=== PATIENT | female | born 1970 | race Caucasian/White ===

== ENCOUNTER 2020-08-23 12:36 | Emergency (ER) | payer OTHER, SELFPAY ==
[2020-08-23 12:47] VITALS: BP 141/87; PULSE 91; RESP 16; TEMP 37.1; O2SAT 94; BMI 35.4
--- NOTE | 2020-08-23 13:34 | XR_ITS ---
WS: [id number] RIGHT HIP HISTORY: INJURY COMPARISON: None available. Right hip: No acute fracture or dislocation. No displacement. Mild acetabular osteophytic ridging. Vi sualized pubic rami intact. Increased soft tissue thickening overlying the lateral proximal femur. XR/XR hip RT 2-3V wo/w pel* [id number] IMPRESSION: 1. No acute fracture. 2. Soft tissue changes consistent with hematoma or edema lateral to the proxim al femur.
--- NOTE | 2020-08-23 14:48 | ED_ITS ---
HPI - Extremity Problem General: Chief complaint: Extremity Injury, Lower Stated complaint: RIGHT LEG AND R HIP PAIN POST 5 DAYS Time Seen by Provider: 08/23/20 13:41 Source: patient Mode of arrival: ambulatory Limitations: no limitations History of Present Illness: HPI Narrative: 50-year-old female patient presents to the emergency department with 4-day onset of right hip pain. She reports her dog came up behind her and hit her in the back of the right upper leg causing her to almost fall. She reports pain in the right hip since the episode. Pain is worse with lateral movement. She states is able to walk without difficulty. She denies further injuries or pain upon exam MD Complaint: extremity pain Onset (ago): day(s) (4) Pain Consistency: intermittent Location: right and lower extremity Severity scale (1-10): 4 Radiation: none Exacerbating factors: other (Lateral movement) Associated symptoms: Reports no associated symptoms; Deny chest pain, fever(s) or rash Review of Systems General: Reports: 10 or more systems reviewed and unremarkable except in HPI and below Const: Denies: fever(s), chills or diaphoresis Eyes: Denies: blurry vision or eye redness ENMT: Denies: throat pain, dental pain or disequilibrium Card: Denies: chest pain, palpitations or irregular heart rhythm Resp: Denies: dyspnea, productive cough, non-productive cough or wheezing GI: Denies: abdominal pain, nausea or vomiting : Denies: difficulty voiding or dysuria Musc: Reports: extremity pain (Right hip); Denies: neck pain or back pain Skin/Breast: Denies: rash or pruritus Neuro: Denies: headache(s), weakness in extremities or behavioral changes Psych: Denies: anxiety or depression Donny/Lymph: Denies: easy bruising Physical Exam Const: COMMON NORMALS: no acute distress, patient oriented x3, healthy appearing and alert GENERAL APPEARANCE: cooperative, comfortable and well hydrated HENMT: COMMON NORMALS: normocephalic, Normal external nose present and moist oral mucous membranes HEAD & SCALP: normocephalic NOSE: Normal external nose present Eye: COMMON NORMALS: Equal, round and reactive pupils present GENERAL EYE: appearance normal, both eyes and all related structures PUPIL: Yes Equal, round and reactive pupils present Neck/C-Spine: COMMON NORMALS: full ROM and no lymphadenopathy GENERAL: Yes normal visual inspection and Yes trachea midline CERVICAL SPINE: Yes cervical ROM normal Lymph: LYMPHATIC: no lymphadenopathy noted Chest: COMMONS NORMALS: normal inspection of the chest Resp: COMMON NORMALS: normal respiratory effort, No retractions, No use of accessory muscles and clear to auscultation bilaterally EFFORT & INSPECTION: Yes able to speak in complete sentences AUSCULTATION: clear to auscultation bilaterally Cardio: COMMON NORMALS: regular rhythm, S1 normal heart sound present, S2 normal heart sound present and Peripheral pulses 2+ throughout RHYTHM: regular rhythm HEART SOUNDS: S1 normal heart sound present and S2 normal heart sound present PERIPHERAL PULSES: Peripheral pulses 2+ throughout GI: COMMON NORMALS: Normal to inspection, nondistended, normoactive bowel sounds present, Soft to palpation and non-tender INSPECTION: Yes normal to inspection PALPATION: Yes Soft to palpation : COMMON NORMALS: Yes no CVA tenderness BLADDER/KIDNEY EXAM: Yes no CVA tenderness Back/Pelvis: COMMON NORMALS: no CVA tenderness and thoracic and lumbar spine normal to inspection Extremity: COMMON NORMALS: normal to inspection, full ROM and capillary refill normal RIGHT LOWER EXTREMITY: Yes hip joint Right hip: Yes inspection (Normal), Yes palpation (Soft tissue tenderness right anterior), Yes ROM (Full range of motion noted, able to reproduce pain with right hip adduction) and Yes neurovascular exam (Distally intact) Neuro: COMMON NORMALS: patient oriented x3 and no focal motor deficits SENSORIUM/ORIENTATION: Yes alert SPEECH: speech normal GAIT: Yes Normal gait present Psych: COMMON NORMALS: mental status grossly normal, Normal thought process present and cooperative ACTIVITY/MOTOR BEHAVIOR: Yes appropriate eye contact THOUGHT PROCESS: Normal thought process present Skin: COMMON NORMALS: no rashes or lesions noted and turgor normal GENERAL SKIN EXAM: no rashes or lesions noted and turgor normal Course Vital Signs: Vital signs: Vital Signs Temperature 98.8 F 08/23/20 12:47 Pulse Rate 79 08/23/20 15:11 Respiratory Rate 14 08/23/20 15:11 Blood Pressure 138/86 08/23/20 15:11 Pulse Oximetry 96 08/23/20 15:11 MDM - Extremity (Nontraumatic) Imaging Data^: Xray Ortho: Radiologist's impression: [address] [address] XRay Report Signed Patient: Terra Upton #: [id number] : 1970Acct#:[id number] Age/Sex: 50 / FADM Date: 08/23/20 Loc: ERRoom/Bed: Attending Dr: Ordering Provider/Ordering MD: Fabrice Martinez DO Date of Service: 08/23/20 Procedure(s): XR hip RT 2-3V wo/w pel* [id number] Accession Number(s): [id number] Report Number: [id number] WS: [id number] RIGHT HIP HISTORY: INJURY COMPARISON: None available. Right hip: No acute fracture or dislocation. No displacement. Mild acetabular osteophytic ridging. Visualized pubic rami intact. Increased soft tissue thickening overlying the lateral proximal femur. XR/XR hip RT 2-3V wo/w pel* [id number] IMPRESSION: 1. No acute fracture. 2. Soft tissue changes consistent with hematoma or edema lateral to the proximal femur. Dictated By:Marleni Wise DO Signed By:Marleni Wise DOSigned Date/Time:08/23/20 1346 DD/ 1345 Discharge Plan Discharge Patient Disposition: Home Clinical Impression: Strain of muscle of right hip Qualifiers: Encounter type: initial encounter Qualified Code(s): S76.011A - Strain of muscle, fascia and tendon of right hip, initial encounter Groin strain Qualifiers: Encounter type: initial encounter Laterality: right Qualified Code(s): S76.211A - Strain of adductor muscle, fascia and tendon of right thigh, initial encounter Condition: Stable Prescriptions: New IBU 800 mg tablet 800 mg PO TID PRN (Reason: pain) Qty: 30 RF: 0 Discharge Orders: Discharge ED (Routine); Ordered 08/23/20 Ordered By: Ena Alexander Referrals: Feliberto Conner MD [Primary Care Provider] - Discharge Diet: Usual diet Discharge Activity: Resume usual activity Patient Instructions: Muscle Strain (ED), Groin Strain (ED) Activity Restrictions/Additional Instructions: Apply warm moist heat several times daily to help with pain Take ibuprofen as prescribed as needed for pain, do not take [id number] medication such as Aleve, ibuprofen or Advil as duplication of therapy can occur, may take Tylenol as needed for pain if supplement as needed Follow-up with your primary care provider if you continue to have pain in the next 7 days. Coding Level of Care Code ED Package Delivery Room Service Runner for [place] Fwd Exam Comprehensive
[2020-08-23 15:11] VITALS: BP 138/86; PULSE 79; RESP 14; O2SAT 96
== END 2020-08-23 15:12 | disposition home or self-care (01) ==
PROVIDERS: Emergency Provider Nurse Practitioner Family; PCP Family Medicine
DX: S76.011A Strain of muscle, fascia and tendon of right hip, initial encounter (principal); S76.211A Strain of adductor muscle, fascia and tendon of right thigh, initial encounter; W54.1XXA Struck by dog, initial encounter
CPT/HCPCS: 12345; 73502; 99281; 99282

== ENCOUNTER 2020-11-22 09:04 | Outpatient (CLI) | payer OTHER, SELFPAY ==
--- NOTE | 2020-11-22 09:09 | MM_ITS ---
WS: [id number] BILATERAL DIGITAL SCREENING MAMMOGRAPHY WITH CAD CLINICAL INFORMATION: SCREENING HISTORY: Screening mammogram. No current complaints. COMPARISON: TECHNIQUE: Bilateral CC and MLO views. FINDINGS: Scattered fibroglandular densities bilaterally. No suspicious focal mass, asymmetry, calcifications, or architectural distortion. No evidence of malignancy. Incidental axillary tail lymph node left dolly st unchanged. MM/[place] [id number] IMPRESSION: BI-RADS: 2-Benign FOLLOW UP: 1 Year Follow-up Recommend return to annual screening mammography.
== END 2020-11-22 09:05 | disposition home or self-care (01) ==
LOC: RADSHAW 09:08
PROVIDERS: PCP Family Medicine; Visit Provider Family Medicine
DX: Z12.31 Encounter for screening mammogram for malignant neoplasm of breast (principal)
CPT/HCPCS: 77067

== ENCOUNTER → 2021-01-10 10:19 | Outpatient (BNVA) | payer OTHER, SELFPAY | PROVIDERS: PCP Family Medicine; Referring Provider Family Medicine; Visit Provider Podiatrist Foot & Ankle Surgery | DX: M79.672 Pain in left foot (principal); M20.12 Hallux valgus (acquired), left foot; M21.612 Bunion of left foot | CPT/HCPCS: 73630 ==

== ENCOUNTER → 2024-01-11 08:21 | Outpatient (BNVA) | payer OTHER, SELFPAY | PROVIDERS: PCP Family Medicine; Visit Provider Family Medicine | DX: C44.91 Basal cell carcinoma of skin, unspecified (principal); R31.9 Hematuria, unspecified; H73.90 Unspecified disorder of tympanic membrane, unspecified ear; Z51.81 Encounter for therapeutic drug level monitoring; Z13.220 Encounter for screening for lipoid disorders; R30.0 Dysuria | CPT/HCPCS: 80053; 80061; 81000; 85025; 87086 ==

== ENCOUNTER 2024-01-30 11:19 | Outpatient (CLI) | payer OTHER, SELFPAY ==
--- NOTE | 2024-01-30 11:26 | MM_ITS ---
WS: [id number] BILATERAL 3D TOMOSYNTHESIS DIGITAL SCREENING MAMMOGRAPHY WITH CAD CLINICAL INFORMATION: SCREENING HISTORY: Screening mammogram. No current complaints. COMPARISON: 2020 TECHNIQUE: Bilateral CC and MLO views. FINDINGS: Scattered fibroglandular densities bilaterally. No suspicious focal mass, asymmetry, calcifications, or architectural distortion. No evidence of malignancy. MM/[place] [id number] IMPRESSION: BI-RADS: 1-Negative FOLLOW UP: 1 Year Follow-up Recommend return to annual screening mammography.
--- NOTE | 2024-01-30 12:15 | US_ITS ---
WS: [id number] RENAL ULTRASOUND URINARY BLADDER ULTRASOUND HISTORY: Persistent hematuria COMPARISON: 03/07/2017 TECHNIQUE: 2-D and color Doppler imaging of the kidney submitted. Right kidney: 9.2 cm x 4.7 cm x 5.0 cm. Normal echogenicity with no hydronephrosis or mass. Left kidney: 9.7 cm x 6.1 cm x 5.8 cm. Normal echogenicity with no hydronephrosis or mass. Aorta: Normal. Urinary Bladder: Normal distention. Prevoid volume is 40 mL. Bladder was not distended for this exam. No post void residual. US/US renal BI with PV bladder IMPRESSION: 1. No renal obstruction or mass identified. No calcifications. 2. No significant post void residual in the urinary bladder.
== END 2024-01-30 11:20 | disposition home or self-care (01) ==
LOC: RAD 11:19
PROVIDERS: PCP Family Medicine; Visit Provider Family Medicine
DX: Z12.31 Encounter for screening mammogram for malignant neoplasm of breast (principal); R31.9 Hematuria, unspecified; R92.323 Mammographic fibroglandular density, bilateral breasts
CPT/HCPCS: 76770; 76857; 77063; 77067

== ENCOUNTER 2024-05-27 08:57 | Outpatient (RCR) | payer OTHER, SELFPAY | END 2024-06-26 23:59 | disposition home or self-care (01) | LOC: SPT 08:57 | PROVIDERS: Visit Provider Family Medicine | DX: M25.551 Pain in right hip (principal) | CPT/HCPCS: 97110; 97161 ==

== ENCOUNTER 2024-05-27 09:40 | Outpatient (CLI) | payer OTHER, SELFPAY ==
--- NOTE | 2024-05-27 09:45 | XR_ITS ---
WS: [id number] Exam: XR hip RT 2-3V wo/w pel* [id number] Date/Time of Exam: 05/27/2024 9:49 AM Reason For Exam: Right hip pain Comparison 08/23/2020. Mild to moderate degenerative change of the joint compartment with narrowing. No fracture. Osteophyte formation along the superior lateral acetabulum. Normal soft tissues. XR/XR hip RT 2-3V wo/w pel* [id number] IMPRESSION: 1. Mild to moderate DJD. No fracture.
== END 2024-05-27 09:41 | disposition home or self-care (01) ==
LOC: RAD 09:42
PROVIDERS: PCP Family Medicine; Visit Provider Family Medicine
DX: M16.11 Unilateral primary osteoarthritis, right hip (principal); M25.752 Osteophyte, left hip
CPT/HCPCS: 73502

== ENCOUNTER 2024-06-27 06:00 | Outpatient (RCR) | payer OTHER, SELFPAY | END 2024-07-26 23:59 | disposition home or self-care (01) | LOC: SPT 06:00 | PROVIDERS: PCP Family Medicine; Visit Provider Family Medicine | DX: M25.551 Pain in right hip (principal) | CPT/HCPCS: 97110 ==

== ENCOUNTER 2024-06-27 13:13 | Outpatient (CLI) | payer OTHER, SELFPAY ==
--- NOTE | 2024-06-27 13:17 | CT_ITS ---
WS: [id number] CT ABDOMEN AND PELVIS WITH AND WITHOUT CONTRAST HISTORY: HEMATURIA TECHNIQUE: Unenhanced 5 mm axial imaging first performed through the abdomen. Post contrast imaging t hrough the abdomen and pelvis. Oral contrast has been provided. Sagittal and coronal reformats are s ubmitted. All CT scans at [place] use at least one of these dose optimization techniques: automated exposure control; mA and/or kV adjustment per patient size (includes targeted exams where d ose is matched to clinical indication); or iterative reconstruction. CONTRAST: Omnipaque 350; 95 mL IV. DLP: 1065.33 mGy.cm COMPARISON: None available. Lung bases are clear. Normal size heart. Small hiatal hernia. Liver and spleen are normal size. Scattered hepatic cysts. Normal portal vein. Gallbladder is slightl y contracted. Normal pancreas. Normal adrenal glands. Normal aorta and mesenteric arteries. Kidneys are normal size. No calcification, obstruction or mass. No ureteral calcification. Stomach is mildly distended with food products. No small bowel obstruction. Diffuse moderate constipa tion. No appendicitis. No diverticulosis. No ascites or adenopathy. Prior hysterectomy. No osteoblastic or osteolytic bone disease. CT/CT abdomen pelvis wo/w [id number] IMPRESSION: 1. No renal or ureteral calcifications or obstruction. 2. Normal appendix. 3. No renal mass. 4. Moderate diffuse constipation. 5. No ascites or adenopathy.
[2024-06-27] MEDS: iohexol 350 mg/mL 500 mL Btl (per mL) IV (14:14)
== END 2024-06-27 13:14 | disposition home or self-care (01) ==
LOC: RAD 13:14
PROVIDERS: PCP Family Medicine; Visit Provider Urology
DX: R31.29 Other microscopic hematuria (principal); K59.00 Constipation, unspecified
CPT/HCPCS: 74178

== ENCOUNTER 2024-07-27 06:00 | Outpatient (RCR) | payer OTHER, SELFPAY | END 2024-08-26 23:59 | disposition home or self-care (01) | LOC: SPT 06:00 | PROVIDERS: PCP Family Medicine; Visit Provider Family Medicine | DX: M25.551 Pain in right hip (principal) | CPT/HCPCS: 97110 ==

== ENCOUNTER 2025-05-29 11:43 | Outpatient (CLI) | payer OTHER, SELFPAY ==
--- NOTE | 2025-05-29 11:40 | MM_ITS ---
WS: [id number] BILATERAL SCREENING DIGITAL TOMOSYNTHESIS MAMMOGRAM WITH CAD HISTORY: Screening COMPARISON: 01/30/2024, 11/22/2020 Bilateral CC and MLO views with tomosynthesis and synthetic mammography submitted. Computer aided detection analyzed. Breast composition: There are scattered areas of fibroglandular density. No suspicious masses, microcalcifications or architectural distortion. Focal asymmetry posterior central RIGHT breast. This asymmetry has been present on multiple prior studies. MM/MM scr tomosynthesis [id number] IMPRESSION: BI-RADS: 2 - Benign. FOLLOW UP: 1 Year Follow-up
== END 2025-05-29 11:44 | disposition home or self-care (01) ==
LOC: RAD 11:45
PROVIDERS: PCP Family Medicine; Visit Provider Family Medicine
DX: Z12.31 Encounter for screening mammogram for malignant neoplasm of breast (principal); R92.323 Mammographic fibroglandular density, bilateral breasts; N64.89 Other specified disorders of breast
CPT/HCPCS: 77063; 77067

== ENCOUNTER → 2025-07-07 08:33 | Outpatient (BNVA) | payer OTHER, SELFPAY | PROVIDERS: PCP Family Medicine; Visit Provider Student in an Organized Health Care Education/Training Program | DX: M16.11 Unilateral primary osteoarthritis, right hip (principal) | CPT/HCPCS: 73502 ==

== ENCOUNTER → 2025-08-07 08:09 | Outpatient (BNVA) | payer OTHER, SELFPAY | PROVIDERS: PCP Family Medicine; Visit Provider Student in an Organized Health Care Education/Training Program | DX: M16.11 Unilateral primary osteoarthritis, right hip (principal); Z71.89 Other specified counseling | CPT/HCPCS: 77002 ==